=== PATIENT | female | born 1965 | race Caucasian/White ===

== ENCOUNTER 2018-11-08 07:59 | Day surgery (SDC) | payer OTHER ==
[~2018-11-08] VITALS: Ht 157.5 cm; Wt 80.5 kg
[2018-11-08 10:31] VITALS: Ht 157.5 cm; Wt 80.5 kg
[2018-11-08] MEDS ORDERED: VITAMINS (10:38)
[2018-11-08] MEDS ORDERED: OMEGA-3 (10:38)
[2018-11-08] MEDS ORDERED: GLUCOSAMINE (10:38)
[2018-11-08 10:54] VITALS: BP 146/68; PULSE 65; RESP 14
[2018-11-08] MEDS ORDERED: LIDOCAINE 4% SOLUTION 50 ML BTL ONE (10:56)
[2018-11-08] MEDS ORDERED: MIDAZOLAM 1 MG/ML 2 ML INJ ONE ×2 (11:29)
[2018-11-08] MEDS ORDERED: FENTAnyl 50 MCG/ML VIAL ONE (11:29)
== END 2018-11-08 15:20 | disposition home or self-care (01) ==
LOC: GIL 07:59
PROVIDERS: ATTEND Internal Medicine Gastroenterology
DX: K20.8 Other esophagitis (principal)
CPT/HCPCS: 43239; 88305; 88312; J2250; J3010; Z7610; 88313